=== PATIENT | male | born 1985 | race American Indian/Alaskan Native ===

== ENCOUNTER 2017-07-09 11:35 | Emergency (ER) | payer MEDICAID ==
[2017-07-09 11:40] VITALS: BP 145/72; PULSE 72; RESP 18; TEMP 98.2; O2SAT 98
--- NOTE | 2017-07-09 12:12 | C.PDOC ---
History Of Present Illness 31 year old male presents to the ED c/o left upper tooth pain radiating towards his left ear for the past 3-4 days. Patient reports no improvement to his symptoms after using orajel. Patient denies injury, fall, trauma, facial swelling, weakness, numbness. Time Seen by Provider: 07/09/17 11:43 Chief Complaint (Nursing): Dental Pain History Per: Patient History/Exam Limitations: no limitations Onset/Duration Of Symptoms: Days Current Symptoms Are (Timing): Still Present Quality: Positive for: "Pain" Recent travel outside of the [place]: No Additional History Per: Patient Past Medical History Reviewed: Historical Data, Nursing Documentation, Vital Signs Vital Signs: Last Vital Signs Temp 98.2 F 07/09/17 11:37 Pulse 72 07/09/17 11:37 Resp 18 07/09/17 11:37 BP 145/72 07/09/17 11:37 Pulse Ox 98 07/09/17 12:14 - Medical History PMH: Bronchitis Surgical History: No Surg Hx - [facility] Procedures CLOSURE SKIN & SUBCUTANEOUS NEC (05/30/14) Family History: States: Unknown Family Hx - Social History Hx Tobacco Use: Yes Hx Alcohol Use: Yes (weekends) Hx Substance Use: Yes (marijuana) - Immunization History Hx Tetanus Toxoid Vaccination: No Hx Influenza Vaccination: No Hx Pneumococcal Vaccination: No Review Of Systems Constitutional: Negative for: Fever, Chills ENT: Positive for: Mouth Pain. Negative for: Nose Discharge, Nose Congestion, Throat Pain, Throat Swelling Respiratory: Negative for: Cough Gastrointestinal: Negative for: Nausea, Vomiting Skin: Negative for: Rash Physical Exam - Physical Exam Appears: Non-toxic, No Acute Distress Skin: Normal Color, Warm, Dry Head: Atraumatic, Normacephalic Eye(s): bilateral: Normal Inspection Ear(s): Bilateral: Normal Oral Mucosa: Moist Teeth: Caries (left upper rear most tooth), Tender To Palpation (left upper rear most tooth) Gingiva: No Swelling, No Bleeding Throat: Normal, No Erythema, No Exudate Neck: Normal ROM, Supple Neurological/Psych: Oriented x3, Normal Speech Gait: Steady ED Course And Treatment O2 Sat by Pulse Oximetry: 98 (ON RA) Pulse Ox Interpretation: Normal Medical Decision Making Medical Decision Making: Plan: * Tylenol 975 mg PO * amoxicillin 500 mg PO * Motrin 600 mg PO Patient was given list of dentists so he can follow up and have longer treatment for his dental pain. Disposition Counseled Patient/Family Regarding: Diagnosis, Need For Followup, Rx Given - Disposition Referrals: [facility]tr[facility] [Outside] Disposition: HOME/ ROUTINE Disposition Time: 12:12 Condition: GOOD Additional Instructions: Please take medications as prescribed. Follow up with dentist as soon as possible. Return to ER for any worse symptoms. Prescriptions: Acetaminophen [Tylenol 325mg tab] 650 mg PO Q4 #50 tab Amoxicillin [Amoxil 500 mg Cap] 500 mg PO TID #30 cap Ibuprofen [Motrin] 600 mg PO TID #30 tab Instructions: Tooth Decay, Adult (DC) Forms: [facility] [facility] ([place]), General Discharge Instructions - Clinical Impression Clinical Impression: Dental caries, Pain, dental - PA / DIRECTOR REGULATORY AFFAIRS / Resident Statement MD/DO has reviewed & agrees with the documentation as recorded. - Scribe Statement The provider has reviewed the documentation as recorded by the Scribe Urban Randolph All medical record entries made by the Scribe were at my direction and personally dictated by me. I have reviewed the chart and agree that the record accurately reflects my personal performance of the history, physical exam, medical decision making, and the department course for this patient. I have also personally directed, reviewed, and agree with the discharge instructions and disposition.
== END 2017-07-09 12:47 | disposition home or self-care (01) ==
LOC: C.ER 11:35
DX: K02.9 Dental caries, unspecified (principal); K08.89 Other specified disorders of teeth and supporting structures; Z72.0 Tobacco use

== ENCOUNTER 2017-09-20 14:58 | Emergency (ER) | payer MEDICAID ==
[2017-09-20 15:05] VITALS: TEMP 98.8; O2SAT 98
[2017-09-20] MEDS ORDERED: Absorbable Gelatin Sponge Size 12-7 TOP STA (15:30)
[2017-09-20] MEDS ORDERED: Tetanus/Diphtheria Toxoids 0.5 ml Syringe IM ONE ×2 (15:33→15:39)
--- NOTE | 2017-09-20 15:59 | C.PDOC ---
History Of Present Illness <Yoko Winters - Last Filed: 09/20/17 15:53> <Diandra Kelly - Last Filed: 09/20/17 17:23> 32 year old male patient presents to the ER with c/o laceration on tip of right second finger. Patient reports that the injury came from his table saw. Patient is not UTD with his tetanus shot. (Diandra Kelly) <Yoko Winters - Last Filed: 09/20/17 15:53> History Per: Patient History/Exam Limitations: no limitations Onset/Duration Of Symptoms: Hrs Current Symptoms Are (Timing): Still Present Location Of Injury: Right: Hand (second finger laceration) Quality Of Symptoms: Painful <Diandra Kelly - Last Filed: 09/20/17 17:23> Time Seen by Provider: 09/20/17 15:16 Chief Complaint (Nursing): Abnormal Skin Integrity Past Medical History - Medical History PMH: Bronchitis Family History: States: Unknown Family Hx - Social History Hx Tobacco Use: Yes Hx Alcohol Use: Yes (weekends) Hx Substance Use: Yes (marijuana) - Immunization History Hx Tetanus Toxoid Vaccination: No Hx Influenza Vaccination: No Hx Pneumococcal Vaccination: No <Yoko Winters - Last Filed: 09/20/17 15:53> Vital Signs: Last Vital Signs Temp 98.8 F 09/20/17 15:03 Pulse 81 09/20/17 16:19 Resp 18 09/20/17 16:19 BP 148/79 09/20/17 16:19 Pulse Ox 98 09/20/17 16:19 - [facility] Procedures CLOSURE SKIN & SUBCUTANEOUS NEC (05/30/14) Review Of Systems Except As Marked, All Systems Reviewed And Found Negative. Constitutional: Negative for: Fever, Chills Skin: Positive for: Other (laceration on tip of right second finger) <Diandra Kelly - Last Filed: 09/20/17 17:23> Physical Exam - Physical Exam Appears: Non-toxic, No Acute Distress Skin: Warm, Dry Head: Normacephalic Extremity: Other (avulsion of tip of second finger on right hand; nail and bone not involved) Pulses: Left Radial: Normal, Right Radial: Normal Neurological/Psych: Oriented x3, Normal Speech, Normal Motor, Normal Sensation, Normal Reflexes Gait: Steady <Diandra Kelly - Last Filed: 09/20/17 17:23> ED Course And Treatment O2 Sat by Pulse Oximetry: 98 <Cosmo Wintersin Marielle - Last Filed: 09/20/17 15:53> O2 Sat by Pulse Oximetry: 98 (RA) Pulse Ox Interpretation: Normal Progress Note: Impression: Laceration on tip of second finger on right hand. Plans: -- Tetanus booster. Laceration repair: Finger was soaked in saline and betadine. Laceration was dressed with Gelfoam sterile dressing. Reassessment: Hemastasis achieved. Patient is resting comfortably. Patient will be discharged home and instruct to f/u with hand specialist <Diandra Kelly - Last Filed: 09/20/17 17:23> Disposition <SinghYoko Marielle - Last Filed: 09/20/17 15:53> - Disposition Disposition Time: 16:03 <Diandra Kelly - Last Filed: 09/20/17 17:23> - Disposition Referrals: Mikie Aguirre MD [Staff Provider] - Disposition: HOME/ ROUTINE Condition: STABLE Additional Instructions: Follow up with hand specialist within 2-3 days. Return to ED if feel worse. Instructions: Wound Care (DC) Forms: [facility] ([place]) - Clinical Impression Clinical Impression: Avulsion, finger tip <SinghYoko Marielle - Last Filed: 09/20/17 15:53> - PA / PLANT GENERAL MANAGER / Resident Statement MD/ has reviewed & agrees with the documentation as recorded. - Scribe Statement The provider has reviewed the documentation as recorded by the Scribe <Diandra Kelly - Last Filed: 09/20/17 17:23> - Scribe Statement Almonte Do All medical record entries made by the Scribe were at my direction and personally dictated by me. I have reviewed the chart and agree that the record accurately reflects my personal performance of the history, physical exam, medical decision making, and the department course for this patient. I have also personally directed, reviewed, and agree with the discharge instructions and disposition. (Diandra Kelly)
[2017-09-20 16:22] VITALS: BP 148/79; PULSE 81; RESP 18
== END 2017-09-20 16:22 | disposition home or self-care (01) ==
LOC: C.ER 14:58
DX: S61.210A Laceration without foreign body of right index finger without damage to nail, initial encounter (principal); W27.8XXA Contact with other nonpowered hand tool, initial encounter; Y92.9 Unspecified place or not applicable

== ENCOUNTER 2017-09-27 09:52 | Emergency (ER) | payer MEDICAID ==
[2017-09-27 10:01] VITALS: BMI 34.9
[2017-09-27 10:05] VITALS: BP 137/85; PULSE 82; RESP 18; TEMP 98.2; O2SAT 98
--- NOTE | 2017-09-27 10:11 | C.PDOC ---
History Of Present Illness 32 y/o male presents to the ED for wound check of the right 2nd digit. Patient was seen here on 09/20 and treated for an avulsion to the tip of the finger. Currently she denies any pain or bleeding. Patient received tetanus booster at last visit. She otherwise denies any fever or chills. Time Seen by Provider: 09/27/17 10:02 Chief Complaint (Nursing): Wound Check History Per: Patient History/Exam Limitations: no limitations Onset/Duration Of Symptoms: Days Ago (7) Current Symptoms Are (Timing): Better Past Medical History Reviewed: Historical Data, Nursing Documentation, Vital Signs Vital Signs: Last Vital Signs Temp 98.2 F 09/27/17 10:04 Pulse 82 09/27/17 10:04 Resp 18 09/27/17 10:04 BP 137/85 09/27/17 10:04 Pulse Ox 98 09/27/17 10:11 - Medical History PMH: Bronchitis - [facility] Procedures CLOSURE SKIN & SUBCUTANEOUS NEC (05/30/14) Family History: States: Unknown Family Hx - Social History Hx Tobacco Use: Yes Hx Alcohol Use: Yes (weekends) Hx Substance Use: Yes (marijuana) - Immunization History Hx Tetanus Toxoid Vaccination: Yes Hx Influenza Vaccination: No Hx Pneumococcal Vaccination: No Review Of Systems Constitutional: Negative for: Fever, Chills Skin: Positive for: Lesions (healing avulsion to right 2nd digit) Physical Exam - Physical Exam Appears: Well, Non-toxic, No Acute Distress Skin: Normal Color, Warm, Dry, No Rash Head: Atraumatic, Normacephalic Eye(s): bilateral: Normal Inspection, PERRL, EOMI Oral Mucosa: Moist Neck: Supple Chest: Symmetrical Extremity: Normal ROM, Tenderness (slightly tender to palpation), Capillary Refill (less than 2 seconds), No Swelling, Other (Healing avulsion to tip of right 2nd digit) Neurological/Psych: Oriented x3, Normal Speech Gait: Steady ED Course And Treatment O2 Sat by Pulse Oximetry: 98 (RA) Pulse Ox Interpretation: Normal Medical Decision Making Medical Decision Making: Impression: Wound check Plan: Patient is stable and will be discharged home. Counseled patient regarding diagnosis and follow up instructions. Disposition Counseled Patient/Family Regarding: Diagnosis - Disposition Disposition: HOME/ ROUTINE Disposition Time: 10:10 Condition: STABLE Forms: [employer] ([place]), General Discharge Instructions - POA Present On Arrival: None - Clinical Impression Clinical Impression: Encounter for wound care - Berthaibe Statement The provider has reviewed the documentation as recorded by the Neisha Adams Provider Attestation: All medical record entries made by the Berthaibanitra were at my direction and personally dictated by me. I have reviewed the chart and agree that the record accurately reflects my personal performance of the history, physical exam, medical decision making, and the department course for this patient. I have also personally directed, reviewed, and agree with the discharge instructions and disposition.
[2017-09-27] MEDS ORDERED: Bacitracin 500 Units/gm Oint Foilpak UD ONE (10:25)
== END 2017-09-27 10:38 | disposition home or self-care (01) ==
LOC: C.ER 09:52
DX: Z48.00 Encounter for change or removal of nonsurgical wound dressing (principal); Z72.0 Tobacco use